=== PATIENT | male | born 1990 | race Caucasian/White ===

== ENCOUNTER 2020-08-12 12:18 | Outpatient (REF) | payer MEDICAID, SELFPAY | END 2020-08-12 12:19 | disposition home or self-care (01) | LOC: HO.LAB 12:18 | PROVIDERS: PCP Internal Medicine; Visit Provider Internal Medicine | DX: Z20.828 Contact with and (suspected) exposure to other viral communicable diseases (principal) | CPT/HCPCS: U0003 ==

== ENCOUNTER 2020-09-17 14:46 | Outpatient (REF) | payer MEDICAID, SELFPAY | END 2020-09-17 14:47 | disposition home or self-care (01) | LOC: HO.LAB 14:46 | PROVIDERS: Visit Provider Internal Medicine | DX: Z20.828 Contact with and (suspected) exposure to other viral communicable diseases (principal) | CPT/HCPCS: C9803; U0003 ==

== ENCOUNTER 2024-11-02 10:15 | Outpatient (REF) | payer MEDICAID, SELFPAY ==
--- NOTE | ~2024-11-02 | XR_ITS ---
EXAMINATION: XR CHEST CLINICAL INFORMATION: persistent cough x one mos, asthma, smoker COMPARISON: 12/18/2019. CT chest 01/08/2020. TECHNIQUE: 2 views of the chest were obtained. FINDINGS: The cardiac, hilar, and mediastinal contours are normal. The lungs are clear bilaterally. There is no pneumothorax or pleural effusion. There is no focal osseous or soft tissue abnormality. XR/XR chest 2V IMPRESSION: No active pulmonary disease. Electronically signed by: Kanu Allison MD 11/02/2024 11:01 AM [facility]
== END 2024-11-02 10:16 | disposition home or self-care (01) ==
LOC: HO.HHCX 10:15
PROVIDERS: Visit Provider Family Medicine
DX: J45.31 Mild persistent asthma with (acute) exacerbation (principal)
CPT/HCPCS: 71046

== ENCOUNTER → 2024-11-02 10:15 | Outpatient (BNV) | payer MEDICAID, SELFPAY | PROVIDERS: Visit Provider Radiology Diagnostic Radiology | DX: R05.9 Cough, unspecified (principal); J45.909 Unspecified asthma, uncomplicated; F17.210 Nicotine dependence, cigarettes, uncomplicated | CPT/HCPCS: 71046 ==